=== PATIENT | female | born 1985 | race Hispanic/Latino ===

== ENCOUNTER → 2019-12-12 | Outpatient (CLI) | payer BC ==
[~2019-12-12] MED LIST: IOHEXOL-350 50ML VIAL IV ONE
== END | disposition home or self-care (01) ==
LOC: RAH 14:00
PROVIDERS: ATTEND Nurse Practitioner Adult Health
DX: R59.1 Generalized enlarged lymph nodes (principal)
CPT/HCPCS: 70492; Q9967